=== PATIENT | male | born 1990 ===

== ENCOUNTER 2023-06-21 09:31 | Outpatient (CLI) | payer OTHER | END 2023-06-21 09:33 | disposition home or self-care (01) | LOC: SONOGRAMA 09:31 | PROVIDERS: ATTEND Pathology Anatomic Pathology | DX: D34 Benign neoplasm of thyroid gland (principal); E07.89 Other specified disorders of thyroid; E04.2 Nontoxic multinodular goiter; E06.3 Autoimmune thyroiditis ==